=== PATIENT | female | born 1985 | race Caucasian/White ===

== ENCOUNTER 2018-01-14 12:45 | Emergency (ER) | payer OTHER ==
[2018-01-14] MEDS ORDERED: ONDANSETRON 4 MG/2 ML VIAL IVP ONE (13:11)
--- NOTE | 2018-01-14 13:11 | EDPHY ---
H & P Stated Complaint: stabbing lower abd/pelvic pain since this morning Time Seen by Provider: 01/14/18 12:59 HPI/ROS: CHIEF COMPLAINT: Pelvic pain HISTORY OF PRESENT ILLNESS: 32-year-old female presents with pelvic pain. Onset of sharp and stabbing pelvic pain 2 hr ago. The pain is moderate and associated with nausea. No fever, vomiting, constipation, diarrhea, vaginal discharge or urinary symptoms. Last menstrual period: now. No prior similar symptoms and no prior history of ovarian cyst. No allev/aggrav factors REVIEW OF SYSTEMS: complete 10 point ROS negative except at noted in the HPI - Personal History LMP (Females 10-55): Now Current Tetanus/Diphtheria Vaccine: Yes - Medical/Surgical History Hx Asthma: No Hx Chronic Respiratory Disease: No Hx Diabetes: No Hx Cardiac Disease: No Hx Renal Disease: No Hx Cirrhosis: No Hx Alcoholism: No Hx HIV/AIDS: No Hx Splenectomy or Spleen Trauma: No Other PMH: IBS - Social History Smoking Status: Never smoked - Physical Exam Exam: General Appearance: Alert, pleasant, appears in pain Eyes: Pupils equal and round, no conjunctival pallor or injection ENT, Mouth: Mucous membranes moist Neck: Normal inspection Respiratory: Lungs are clear to auscultation Cardiovascular: Regular rate and rhythm Gastrointestinal: Abdomen is soft, diffuse pelvic tenderness Neurological: A&O, nonfocal, normal gait Skin: Warm and dry Extremities: Normal inspection Psychiatric: Mood and affect normal Constitutional: Initial Vital Signs Temperature (C) 37.1 C 01/14/18 12:53 Heart Rate 84 01/14/18 12:53 Respiratory Rate 18 01/14/18 12:53 Blood Pressure 144/96 H 01/14/18 12:53 O2 Sat (%) 94 01/14/18 12:53 O2 Delivery Mode Room Air Allergies/Adverse Reactions: No Known Allergies Allergy (Unverified 01/14/18 12:52) Home Medications: Medication Instructions Recorded Bcp 01/14/18 Cephalexin [Keflex (*)] 500 mg PO BID #10 cap 01/14/18 Medical Decision Making - Diagnostics Imaging Results: Pelvis ultrasound read by Dr. Farley: negative. Imaging: Discussed imaging studies w/ [employer] [place] Radiologist, I viewed and interpreted images myself ED Course/Re-evaluation: This pt presents with pelvic pain, concerning for ovarian cyst/torsion vs ectopic . stat preg test negative. Pelvic sono ordered. Pt declines pain medications. UA reveals UTI. Urine cx sent. d/w pt, denies UTI sx. Keflex 500mg orally given. Pelvic sono negative. Pt still declines pain medications, including ibuprofen/toradol. Feels better, abd exam unchanged. Unusual presentation for UTI, but no other etiology found on sono/other testing. Doubt STD, given one sexual partner and no vaginal discharge. Will rx for UTI, warning signs discussed. Differential Diagnosis: Differential diagnosis includes though it is not limited to ectopic , ovarian cyst, ovarian torsion, PID, UTI, appendicitis. - Data Points Laboratory Results: Laboratory Results 01/14/18 13:12 01/14/18 13:12 Medications Given: Discontinued Medications Cephalexin HCl (Keflex) 500 mg PO EDNOW ONE PRN Reason: Protocol Stop: 01/14/18 14:30 Last Admin: 01/14/18 14:40 Dose: 500 mg Ondansetron HCl (Zofran) 4 mg IVP EDNOW ONE Stop: 01/14/18 13:12 Last Admin: 01/14/18 13:28 Dose: 4 mg Departure - Departure Disposition: Home, Routine, Self-Care Clinical Impression: Pelvic pain in female Urinary tract infection Qualifiers: Urinary tract infection type: acute cystitis Hematuria presence: without hematuria Qualified Code(s): N30.00 - Acute cystitis without hematuria Condition: Good Instructions: Urinary Tract Infection in Women (ED), Pelvic Pain in Women (ED) Additional Instructions: Ibuprofen 600 mg 3 times daily while the pain persists. Return for worsening symptoms or any concerns. Referrals: RADHA JAQUEZ [Other] - As per Instructions Prescriptions: Cephalexin [Keflex (*)] 500 mg PO BID #10 cap
[2018-01-14 13:19] LABS: PLATELET COUNT 262 10^3/uL (150-400)
[2018-01-14] MEDS ORDERED: CEPHALEXIN 500 MG CAP PO ONE (14:29)
[2018-01-14 14:46] VITALS: BP 132/86
== END 2018-01-14 14:51 | disposition home or self-care (01) ==
DX: N30.00 Acute cystitis without hematuria (principal); B96.20 Unspecified Escherichia coli [E. coli] as the cause of diseases classified elsewhere
CPT/HCPCS: 96374; J2270; J2405